=== PATIENT | male | born 1980 | race Two or more races ===

== ENCOUNTER 2019-05-04 16:15 | Inpatient (IN) | payer SELFPAY ==
[~2019-05-04] VITALS: Ht 165.1 cm; Wt 58.5 kg
[2019-05-04] MEDS ORDERED: ONDANSETRON HCL 4MG/2ML INJ IV STA (16:29)
[2019-05-04] MEDS ORDERED: KETOROLAC 30MG/ML VIAL IV STA (16:29)
[2019-05-04] MEDS ORDERED: SODIUM CHLORIDE 0.9% 1,000 ML IV ONE ×2 (16:29→17:45)
[2019-05-04 17:00] LABS: BASOPHILS % 1.3 % (0.0-2.0); EOSINOPHILS % 1.5 % (0.0-5.0); HEMATOCRIT. 44.9 % (42.0-52.0); HEMOGLOBIN. 15.2 g/dL (14.0-18.0); LYMPHOCYTES % 13.9 % (20.0-50.0); MEAN CORPUSCULAR HEMOGLOBIN 33.9 pg (28.0-32.0); MEAN CORPUSCULAR VOLUME 100.1 fL (80.0-94.0); MEAN PLATELET VOLUME 7.6 fl (7.4-10.4); MONOCYTES % 5.4 % (2.0-8.0); NEUTROPHILS % 77.9 % (40.0-76.0); PLATELET 264 x1000/uL (130-400); RED BLOOD CELL COUNT 4.49 mill/uL (4.7-6.1); RED CELL DISTRIBUTION WIDTH 14.4 % (11.6-14.6)
[2019-05-04 17:05] LABS: CHLORIDE 102 mEq/L (98-107)
[2019-05-04 17:41] LABS: ETHANOL BLOOD 365 mg/dL
[2019-05-04 19:09] LABS: CLARITY URINE CLEAR (CLEAR); COLOR URINE YELLOW (YELLOW); KETONES URINE NEGATIVE (NEGATIVE); LEUKOCYTE ESTERASE URINE NEGATIVE (NEGATIVE); NITRITE URINE NEGATIVE (NEGATIVE); OCCULT BLOOD URINE 1+ (NEGATIVE); PH URINE 6.5 (4.5-8.0); PROTEIN URINE TRACE (NEGATIVE); SPECIFIC GRAVITY URINE 1.009 (1.005-1.030)
[2019-05-04] MEDS: DEXT 5%/0.45% NACL 1000ML 1,000 ML IV SCH (22:29)
[2019-05-04] MEDS: MORPHINE SULFATE 2 MG/ML CPJ (NOT FOR IM USE) IV PRN (22:31)
[2019-05-04 22:38] VITALS: BP 122/86
[2019-05-05] VITALS: BP 117/82
[2019-05-05] MEDS: LORAZEPAM 2MG/ML CPJ IV PRN (01:43)
[2019-05-05] MEDS: MORPHINE SULFATE 2 MG/ML CPJ (NOT FOR IM USE) IV PRN ×5 (03:59→21:43)
[2019-05-05 04:00] VITALS: BP 118/86
[2019-05-05] MEDS ORDERED: IBUP-1653 PO (04:23)
[2019-05-05] MEDS: ONDANSETRON HCL 4MG/2ML INJ IV PRN ×3 (05:27→20:14)
[2019-05-05 07:17] LABS: BASOPHILS % 1.7 % (0.0-2.0); HEMATOCRIT. 38.3 % (42.0-52.0); MEAN CORPUSCULAR HEMOGLOBIN 33.8 pg (28.0-32.0); MEAN PLATELET VOLUME 7.8 fl (7.4-10.4); NEUTROPHILS % 70.3 % (40.0-76.0); PLATELET 222 x1000/uL (130-400); RED BLOOD CELL COUNT 3.83 mill/uL (4.7-6.1); RED CELL DISTRIBUTION WIDTH 13.8 % (11.6-14.6)
[2019-05-05 07:41] LABS: CHLORIDE 103 mEq/L (98-107)
[2019-05-05 08:00] VITALS: BP 122/80
[2019-05-05] MEDS ORDERED: POTASSIUM CHLORIDE 20MEQ TABLET SR PO NR (09:00)
[2019-05-05] MEDS ORDERED: PNEUMOCOCCAL 23-VAL P-SAC VAC 0.5 ML IM ONE (09:00)
[2019-05-05 12:11] VITALS: BP 122/68
[2019-05-05] MEDS: DEXT 5%/0.45% NACL 1000ML 1,000 ML IV SCH (14:16)
[2019-05-05 15:55] VITALS: BP 128/84
[2019-05-05 20:00] VITALS: BP 131/87
[2019-05-06] VITALS: BP 127/84
[2019-05-06] MEDS: ONDANSETRON HCL 4MG/2ML INJ IV PRN ×2 (01:11→10:47)
[2019-05-06] MEDS: MORPHINE SULFATE 2 MG/ML CPJ (NOT FOR IM USE) IV PRN ×6 (01:27→21:20)
[2019-05-06] MEDS: DEXT 5%/0.45% NACL 1000ML 1,000 ML IV SCH ×2 (01:28→17:44)
[2019-05-06 04:00] VITALS: BP 131/94
[2019-05-06 07:13] LABS: CHLORIDE 98 mEq/L (98-107)
[2019-05-06 07:20] LABS: BASOPHILS % 1.1 % (0.0-2.0); EOSINOPHILS % 4.3 % (0.0-5.0); HEMATOCRIT. 41.9 % (42.0-52.0); HEMOGLOBIN. 14.3 g/dL (14.0-18.0); LYMPHOCYTES % 10.1 % (20.0-50.0); MEAN CORPUSCULAR HEMOGLOBIN 34.2 pg (28.0-32.0); MEAN CORPUSCULAR VOLUME 99.8 fL (80.0-94.0); MEAN PLATELET VOLUME 7.9 fl (7.4-10.4); MONOCYTES % 5.8 % (2.0-8.0); NEUTROPHILS % 78.7 % (40.0-76.0); PLATELET 220 x1000/uL (130-400); RED CELL DISTRIBUTION WIDTH 13.8 % (11.6-14.6)
[2019-05-06 08:00] VITALS: BP 121/86
[2019-05-06 12:00] VITALS: BP 137/101
[2019-05-06 16:25] VITALS: BP 146/99
[2019-05-06 20:00] VITALS: BP 136/94
[2019-05-07] VITALS: BP 130/92
[2019-05-07] MEDS: MORPHINE SULFATE 2 MG/ML CPJ (NOT FOR IM USE) IV PRN ×2 (01:14→05:07)
[2019-05-07 04:00] VITALS: BP 125/93
[2019-05-07 05:14] LABS: HIV SCREEN 4G Non Reactive (Non Reactive)
[2019-05-07 07:23] LABS: CHLORIDE 97 mEq/L (98-107)
[2019-05-07 08:00] VITALS: BP 131/103
[2019-05-07] MEDS: LORAZEPAM 2MG/ML CPJ IV PRN ×2 (09:37→17:12)
[2019-05-07 12:00] VITALS: BP 140/97
[2019-05-07 16:00] VITALS: BP 125/95
[2019-05-07 20:00] VITALS: BP 117/84
[2019-05-08] VITALS: BP 127/97
[2019-05-08] MEDS: LORAZEPAM 2MG/ML CPJ IV PRN (00:13)
[2019-05-08 04:00] VITALS: BP 125/90
[2019-05-08 08:00] VITALS: BP 124/82
[2019-05-08 12:00] VITALS: BP 123/89
[2019-05-08] MEDS: MORPHINE SULFATE 2 MG/ML CPJ (NOT FOR IM USE) IV PRN ×3 (13:57→23:12)
[2019-05-08 16:00] VITALS: BP 115/88
[2019-05-08 20:00] VITALS: BP 122/87
[2019-05-08] MEDS: DEXT 5%/0.45% NACL 1000ML 1,000 ML IV SCH (20:17)
[2019-05-08] MEDS: ONDANSETRON HCL 4MG/2ML INJ IV PRN (23:12)
[2019-05-09] VITALS: BP 129/93
[2019-05-09 04:00] VITALS: BP 114/78
[2019-05-09 04:13] LABS: QFT MITOGEN VALUE >10.00 IU/mL (.); QFT TB GOLD PLUS Negative (Negative); QFT TB1 AG VALUE 0.07 IU/mL (.)
[2019-05-09] MEDS: MORPHINE SULFATE 2 MG/ML CPJ (NOT FOR IM USE) IV PRN ×4 (04:18→20:29)
[2019-05-09 07:15] LABS: EOSINOPHILS % 5.6 % (0.0-5.0); HEMATOCRIT. 42.6 % (42.0-52.0); HEMOGLOBIN. 14.3 g/dL (14.0-18.0); LYMPHOCYTES % 26.7 % (20.0-50.0); MEAN CORPUSCULAR HEMOGLOBIN 33.9 pg (28.0-32.0); MEAN CORPUSCULAR VOLUME 100.9 fL (80.0-94.0); MEAN PLATELET VOLUME 7.6 fl (7.4-10.4); MONOCYTES % 13.8 % (2.0-8.0); NEUTROPHILS % 51.9 % (40.0-76.0); PLATELET 226 x1000/uL (130-400); RED BLOOD CELL COUNT 4.22 mill/uL (4.7-6.1); RED CELL DISTRIBUTION WIDTH 13.8 % (11.6-14.6)
[2019-05-09 07:24] LABS: CHLORIDE 101 mEq/L (98-107)
[2019-05-09 08:00] VITALS: BP 126/91
[2019-05-09 12:00] VITALS: BP 118/84
[2019-05-09 16:00] VITALS: BP 115/81
[2019-05-09 20:00] VITALS: BP 121/89
[2019-05-09] MEDS: DEXT 5%/0.45% NACL 1000ML 1,000 ML IV SCH (20:28)
[2019-05-10] VITALS: BP 116/88
[2019-05-10] MEDS: MORPHINE SULFATE 2 MG/ML CPJ (NOT FOR IM USE) IV PRN (02:56)
[2019-05-10 04:00] VITALS: BP 114/82
[2019-05-10] MEDS: DEXT 5%/0.45% NACL 1000ML 1,000 ML IV SCH (05:42)
[2019-05-10 08:00] VITALS: BP 131/85
[2019-05-10 12:00] VITALS: BP 120/87
[2019-05-10] MEDS: LORAZEPAM 2MG/ML CPJ IV PRN (12:43)
[2019-05-10] MEDS ORDERED: CHLORDIAZEPOXIDE 25MG CAPSULE PO SCH (14:00)
[2019-05-10 16:00] VITALS: BP 109/64
[2019-05-10] MEDS: CHLORDIAZEPOXIDE 25MG CAPSULE PO SCH (18:16)
[2019-05-10 20:00] VITALS: BP 104/80
[2019-05-11] VITALS: BP 102/68
[2019-05-11 04:00] VITALS: BP 110/62
[2019-05-11] MEDS: CHLORDIAZEPOXIDE 25MG CAPSULE PO SCH ×3 (05:15→21:12)
[2019-05-11 08:00] VITALS: BP 104/71
[2019-05-11] MEDS: LORAZEPAM 2MG/ML CPJ IV PRN ×2 (08:59→16:21)
[2019-05-11 12:00] VITALS: BP 106/69
[2019-05-11] MEDS: KETOROLAC 15MG/ML VIAL IV PRN (13:10)
[2019-05-11 16:00] VITALS: BP 134/74
[2019-05-11] MEDS: ONDANSETRON HCL 4MG/2ML INJ IV PRN (20:11)
[2019-05-11 20:49] VITALS: BP 106/70
[2019-05-12] VITALS (7 sets, daily range): BP systolic 16–115; BP diastolic 61–106
[2019-05-12] MEDS: KETOROLAC 15MG/ML VIAL IV PRN ×3 (03:09→20:32)
[2019-05-12] MEDS: CHLORDIAZEPOXIDE 25MG CAPSULE PO SCH ×3 (05:00→21:01)
[2019-05-12 05:39] LABS: BASOPHILS % 2.3 % (0.0-2.0); EOSINOPHILS % 7.8 % (0.0-5.0); HEMATOCRIT. 39.5 % (42.0-52.0); HEMOGLOBIN. 13.5 g/dL (14.0-18.0); LYMPHOCYTES % 32.9 % (20.0-50.0); MEAN CORPUSCULAR HEMOGLOBIN 34.4 pg (28.0-32.0); MEAN CORPUSCULAR VOLUME 100.8 fL (80.0-94.0); MEAN PLATELET VOLUME 7.7 fl (7.4-10.4); MONOCYTES % 14.1 % (2.0-8.0); NEUTROPHILS % 42.9 % (40.0-76.0); PLATELET 231 x1000/uL (130-400); RED BLOOD CELL COUNT 3.92 mill/uL (4.7-6.1); RED CELL DISTRIBUTION WIDTH 13.5 % (11.6-14.6)
[2019-05-12 06:30] LABS: CHLORIDE 99 mEq/L (98-107)
[2019-05-13 00:35] VITALS: BP 90/55
[2019-05-13] MEDS: KETOROLAC 15MG/ML VIAL IV PRN ×3 (02:53→18:37)
[2019-05-13 04:00] VITALS: BP 101/63
[2019-05-13] MEDS: CHLORDIAZEPOXIDE 25MG CAPSULE PO SCH ×3 (06:17→21:42)
[2019-05-13 08:00] VITALS: BP 100/68
[2019-05-13 11:59] VITALS: BP 105/62
[2019-05-13 15:50] VITALS: BP 90/54
[2019-05-13 20:00] VITALS: BP 99/57
[2019-05-14] VITALS: BP 97/58
[2019-05-14] MEDS: KETOROLAC 15MG/ML VIAL IV PRN ×4 (02:42→23:10)
[2019-05-14 04:00] VITALS: BP 94/56
[2019-05-14] MEDS: CHLORDIAZEPOXIDE 25MG CAPSULE PO SCH ×3 (05:17→21:01)
[2019-05-14 08:00] VITALS: BP 96/50
[2019-05-14 12:00] VITALS: BP 96/56
[2019-05-14 16:00] VITALS: BP 101/64
[2019-05-14 20:00] VITALS: BP 102/69
[2019-05-15] VITALS: BP 91/53
[2019-05-15 04:00] VITALS: BP 96/56
[2019-05-15] MEDS: KETOROLAC 15MG/ML VIAL IV PRN ×3 (05:23→18:03)
[2019-05-15] MEDS: CHLORDIAZEPOXIDE 25MG CAPSULE PO SCH ×2 (05:31→13:55)
[2019-05-15 08:00] VITALS: BP 101/64
[2019-05-15 12:00] VITALS: BP 105/72
[2019-05-15 16:00] VITALS: BP 98/68
[2019-05-15 20:00] VITALS: BP 96/58
[2019-05-15] MEDS ORDERED: LORAZEPAM 2MG/ML CPJ IV PRN (22:45)
[2019-05-16] VITALS: BP 93/59
[2019-05-16] MEDS: KETOROLAC 15MG/ML VIAL IV PRN ×2 (00:36→09:09)
[2019-05-16 04:00] VITALS: BP_SYST 148; BP_SYST 89; BP_DIAS 52; BP_DIAS 57
[2019-05-16 08:00] VITALS: BP 92/55
[2019-05-16 12:00] VITALS: BP 103/64
[2019-05-16 16:00] VITALS: BP 107/72
== END 2019-05-16 18:30 | disposition left against medical advice (07) | DRG 282 ==
LOC: ER 16:15 → 5WST 19:41 → ENRESERV 20:58 → 6EST 05-05 10:48
PROVIDERS: ADMIT Hospitalist; ATTEND Hospitalist
DX: K85.20 Alcohol induced acute pancreatitis without necrosis or infection (principal); F10.10 Alcohol abuse, uncomplicated; K59.00 Constipation, unspecified; Z53.21 Procedure and treatment not carried out due to patient leaving prior to being seen by health care provider; Z59.0 Homelessness
CPT/HCPCS: 36415; 74021; 80320; 82140; 86480; 86592; 87389; 96374; 97116; 97162; 99285; J1885; J2060; J2270; J2405; J7030; G0480